=== PATIENT | female | born 1975 | race Caucasian/White ===

== ENCOUNTER 2016-09-27 12:59 | Day surgery (SDC) | payer OTHER ==
[~2016-09-27] VITALS: Ht 172.7 cm; Wt 68.0 kg
[~2016-09-27 12:59] MED LIST: Ambien PO; ENDOCET 5-3251 EACH PO; Ecotrin PO; Flexeril PO; IBUPROFEN800 MG PO; NOHOMEMEDS; PRENATAL TABLE1 EAC3 PO; Percocet 5/325,Endoc PO; Plaquenil PO; TYLENOL EXTRA500 MG PO; Vitamin D PO
[2016-09-27] MEDS ORDERED: PERCOCET 5/31 TABLET PO (13:22)
[2016-09-27 13:31] VITALS: BP 143/95
[2016-09-27 13:49] LABS: BASOPHIL COUNT 0.1 K/uL (0-0.1); EOSINOPHIL (%) 2.9 % (0-5); EOSINOPHIL COUNT 0.2 K/uL (0-0.3); HEMATOCRIT 43.5 % (36.0-46.0); IMMATURE GRANULOCYTE (%) 0.2 % (0.0-0.7); INSTRUMENT ABS NEUTROPHIL CT 2.8 K/uL; LYMPHOCYTE COUNT 2.7 K/uL (1.0-2.8); MCH 30.8 PG (29.0-34.0); MCV 90.6 FL (83-99); MEAN PLAT.VOLUME 12.8 uM^3 (9.5-12.4); MONOCYTE (%) 6.9 % (3-12); MONOCYTE COUNT 0.4 K/uL (0-0.8); NEUTROPHIL (%) 45.7 % (45-76); NEUTROPHIL COUNT 2.8 K/uL (1.8-6.4); PLATELET COUNT 202 K/uL (156-360); RBC DIS.WIDTH-CV 13.2 % (11.8-14.6); RBC DIS.WIDTH-SD 44.6 % (39-53); WHITE BLOOD COUNT 6.1 K/uL (4.1-10.2)
[2016-09-27 13:56] LABS: INTER. NORMALIZED RATIO 1.1; PROTHROMBIN TIME 10.7 (9.2-11.2)
[2016-09-27 14:28] LABS: QUANTITATIVE HCG < 4.0 MIU/ML
[2016-09-27 15:08] LABS: ALKALINE PHOSPHATASE 44 IU/L (3-129); ANION GAP 12 MEQ/L (2-14); CHLORIDE 104 MEQ/L (99-109); GFR ESTIMATE (CALCULATED) > 59 mL/min/; GLUCOSE 78 mg/dL (70-99); POTASSIUM 3.8 MEQ/L (3.7-5.4); SAMPLE HEMOLYSIS CHECK 0; SAMPLE ICTERIC CHECK 0; SAMPLE LIPEMIA CHECK 0; SODIUM 139 MEQ/L (136-147); TOTAL BILIRUBIN 0.7 MG/DL (0.0-1.0); UREA NITROGEN (BUN) 11 mg/dL (9-23)
[2016-09-27] MEDS ORDERED: HYDROCODON-ACE1 EAC7 PO (17:43)
[2016-09-27] MEDS ORDERED: COLACE100 MG PO (17:43)
[2016-09-27 19:30] VITALS: BP 129/72
[2016-09-27 20:50] VITALS: BP 117/67
== END 2016-09-27 21:04 | disposition home or self-care (01) ==
LOC: SDC 12:59
PROVIDERS: Thoracic Surgery (Cardiothoracic Vascular Surgery)
PROC: 0WUF0JZ Supplement Abdominal Wall with Synthetic Substitute, Open Approach (ICD-10-PCS; principal; 2016-09-27)
DX: K43.9 Ventral hernia without obstruction or gangrene (principal); D86.9 Sarcoidosis, unspecified; E53.8 Deficiency of other specified B group vitamins; E55.9 Vitamin D deficiency, unspecified; Z88.1 Allergy status to other antibiotic agents
CPT/HCPCS: 80053; 84702; 85025; 85610; 93005; C1781; J0330; J0690; J0696; J1100; J1170; J1885; J2405; J2710; J3010; J7050